=== PATIENT | female | born 1965 | race Caucasian/White ===

== ENCOUNTER 2017-05-27 16:39 | Emergency (ER) | payer BC ==
--- NOTE | 2017-05-27 16:59 | EDM.PDOC ---
ED HPI GENERAL MEDICAL PROBLEM - General Chief Complaint: Gastrointestinal Problem Stated Complaint: DIAHREA,VOMITING, WEAK Time Seen by Provider: 05/27/17 16:59 Source of Information: Reports: Patient History Limitations: Reports: No Limitations - History of Present Illness INITIAL COMMENTS - FREE TEXT/NARRATIVE: HISTORY AND PHYSICAL: []52-year-old female is any with nausea and vomiting last night History of Present Illness: []Patient has been sick for 2 days with nausea vomiting coughing since Tuesday 5 days ago Review of Systems: As per history of present illness and below otherwise all systems reviewed and negative. Past medical history: As per history of present illness and as reviewed below otherwise noncontributory. Surgical history: As per history of present illness and as reviewed below otherwise noncontributory. Social history: No reported history of drug or alcohol abuse. Family history: As per history of present illness and as reviewed below otherwise noncontributory. Physical exam: Alert and oriented female who feels miserable skin is hot and dry HEENT: Atraumatic, normocehpalic, pupils reactive, negative for conjunctival pallor or scleral icterus, mucous membranes dry, throat clear, neck supple, nontender, trachea midline. Lungs: Clear to auscultation, breath sounds equal bilaterally, chest non tender. Heart: S1S2, regular, negative for clicks, rubs, or JVD. Abdomen: Soft, nondistended, nontender. Negative for masses or hepatossplenmegaly. Negative for costovertebral tenderness. Pelvis: Stable nontender. Genitourinary: Deferred. Rectal: Deferred Extremities: Atraumatic, negative for cords or calf pain. Neurovascular unremarkable. Neuro: Awake, alert, oriented. Cranial nerves II through XII unremarkable. Cerebellum unremarkable. Motor and sensory unremarkable throughout. Exam nonfocal. Diagnostics: [CBC CMP influenza] Therapeutics: []IV fluids Zofran Impression: [Positive influenza B] Plan: []Discharged to home Small sip or 2 fluid every 20 minutes to keep hydrated Ibuprofen every 6 hours for discomfort for fever Tamiflu 75 mg twice daily 5 days Definitive disposition and diagnosis as appropriate pending reevaluation and review of above. Onset: Gradual Duration: Day(s): (2-5), Getting Worse Location: Reports: Abdomen Generalized Pain Score (Numeric/FACES): 7 - Related Data Allergies Allergy/AdvReac Type Severity Reaction Status Date / Time acetaminophen [From Percocet] Allergy Hallucinati Verified 05/27/17 16:52 ons oxycodone [From Percocet] Allergy Hallucinati Verified 05/27/17 16:52 ons tramadol Allergy Hallucinati Verified 07/12/13 15:43 ons Home Meds: Home Meds Aspirin [Pj Chewable] 81 mg PO DAILY 07/12/13 [History] Gluc Eubanks/Msm/Magnesium/Vit C [Glucosamine Complex-MSM] 1 each PO DAILY 07/12/13 [ History] Ibuprofen [Advil] 200 mg PO Q4HR PRN 07/12/13 [History] Lisinopril [Zestril] 10 mg PO DAILY 07/12/13 [History] Multivitamin [Multivitamins] 1 cap PO DAILY 07/12/13 [History] Omeprazole 40 mg PO BID 07/12/13 [History] Ubidecarenone [Co Q-10] 10 mg PO DAILY 07/12/13 [History] Vit B6/Me-Thfolate/Me-B12/Ala [Podiapn Capsule] 1 each PO BID 07/12/13 [History] Vit D3 & K/Berberine HCl/Hops [Ostera] 1 each PO DAILY 07/12/13 [History] Vitamin B Complex & Vit C No.4 [Super B Complex] 150 mg PO DAILY 07/12/13 [ History] amLODIPine Besylate [Amlodipine Besylate] 10 mg PO DAILY 07/12/13 [History] atorvaSTATin Calcium [Atorvastatin Calcium] 10 mg PO DAILY 07/12/13 [History] Oseltamivir [Tamiflu] 75 mg PO BID #10 cap 05/27/17 [Rx] Past Medical History - Past Health History Medical/Surgical History: Denies Medical/Surgical History Musculoskeletal History: Reports: Arthritis Hematologic History: Reports: Other (See Below) Other Hematologic History: easy bruising/bleeding - Infectious Disease History Infectious Disease History: Reports: Chicken Pox, MRSA - Past Surgical History HEENT Surgical History: Reports: Oral Surgery, Tonsillectomy GI Surgical History: Reports: Appendectomy, Cholecystectomy, Colonoscopy, EGD Female Surgical History: Reports: Hysterectomy, Tubal Ligation Social & Family History - Family History Family Medical History: Noncontributory - Tobacco Use Smoking Status *Q: Never Smoker Years of Tobacco use: 0 Second Hand Smoke Exposure: No - Alcohol Use Days Per Week of Alcohol Use: 4 Number of Drinks Per Day: 2 Total Drinks Per Week: 8 - Recreational Drug Use Recreational Drug Use: No Drug Use in Last 12 Months: No ED ROS GENERAL - Review of Systems Review Of Systems: ROS reveals no pertinent complaints other than HPI. ED EXAM, GI/ABD - Physical Exam Exam: See Below (See dictation) Course - Vital Signs Last Recorded V/S: Last Vital Signs Temp 38.0 C 05/27/17 17:37 Pulse 103 H 05/27/17 16:49 Resp 20 05/27/17 16:49 BP 138/83 05/27/17 16:49 Pulse Ox 98 05/27/17 16:49 - Orders/Labs/Meds Orders: Active Orders 24 hr Category Date Time Status CBC WITH AUTO DIFF [HEME] Stat Lab 05/27/17 17:06 Ordered COMPREHENSIVE METABOLIC PN,CMP [CHEM] Stat Lab 05/27/17 17:06 Ordered CULTURE STREP A CONFIRMATION [RM] Stat Lab 05/27/17 17:11 Results CULTURE URINE [RM] Stat Lab 05/27/17 17:06 Ordered STREP SCRN A RAPID W CULT CONF [RM] Stat Lab 05/27/17 17:11 Results UA W/MICROSCOPIC [URIN] Stat Lab 05/27/17 17:06 Ordered Sodium Chloride 0.9% [Normal Saline] 500 ml Med 05/27/17 17:15 Active IV STAT Sodium Chloride 0.9% [Saline Flush] Med 05/27/17 17:06 Active 10 ml FLUSH ASDIRECTED PRN Sodium Chloride 0.9% [Saline Flush] Med 05/27/17 17:06 Active 2.5 ml FLUSH ASDIRECTED PRN Saline Lock Insert [OM.PC] Stat Oth 05/27/17 17:06 Ordered Medication Orders Sodium Chloride (Normal Saline) 500 mls @ 999 mls/hr IV STAT NITHIN Last Admin: 05/27/17 17:34 Dose: 999 mls/hr Sodium Chloride (Saline Flush) 10 ml FLUSH ASDIRECTED PRN PRN Reason: Keep Vein Open Last Admin: 05/27/17 17:37 Dose: 10 ml Sodium Chloride (Saline Flush) 2.5 ml FLUSH ASDIRECTED PRN PRN Reason: Keep Vein Open Last Admin: 05/27/17 17:37 Dose: 2.5 ml Meds: Medications Generic Name Dose Route Start Last Admin Trade Name Frealmita PRN Reason Stop Dose Admin Sodium Chloride 500 mls @ 999 mls/hr 05/27/17 17:15 05/27/17 17:34 Normal Saline IV 999 mls/hr STAT NITHIN Administration Sodium Chloride 10 ml 05/27/17 17:06 05/27/17 17:37 Saline Flush FLUSH 10 ml ASDIRECTED PRN Administration Keep Vein Open Sodium Chloride 2.5 ml 05/27/17 17:06 05/27/17 17:37 Saline Flush FLUSH 2.5 ml ASDIRECTED PRN Administration Keep Vein Open Discontinued Medications Generic Name Dose Route Start Last Admin Trade Name Leanna PRN Reason Stop Dose Admin Ibuprofen 400 mg 05/27/17 17:09 05/27/17 17:37 Motrin PO 05/27/17 17:10 400 mg ONETIME ONE Administration Ondansetron HCl 4 mg 05/27/17 17:08 05/27/17 17:35 Zofran IVPUSH 05/27/17 17:09 4 mg ONETIME ONE Administration Departure - Departure Time of Disposition: 17:44 Disposition: Home, Self-Care 01 Condition: Good Clinical Impression: Influenza B - Discharge Information Prescriptions: Oseltamivir [Tamiflu] 75 mg PO BID #10 cap Instructions: Influenza, Adult, [id number] Referrals: Surendra Long MD [Primary Care Provider] - Forms: ED Department Discharge - My Orders Last 24 Hours: My Active Orders 05/27/17 17:06 CBC WITH AUTO DIFF [HEME] Stat COMPREHENSIVE METABOLIC PN,CMP [CHEM] Stat CULTURE URINE [RM] Stat UA W/MICROSCOPIC [URIN] Stat Sodium Chloride 0.9% [Saline Flush] 10 ml FLUSH ASDIRECTED PRN Sodium Chloride 0.9% [Saline Flush] 2.5 ml FLUSH ASDIRECTED PRN Saline Lock Insert [OM.PC] Stat 05/27/17 17:11 CULTURE STREP A CONFIRMATION [RM] Stat STREP SCRN A RAPID W CULT CONF [RM] Stat 05/27/17 17:15 Sodium Chloride 0.9% [Normal Saline] 500 ml IV STAT - Assessment/Plan Last 24 Hours: My Active Orders 05/27/17 17:06 CBC WITH AUTO DIFF [HEME] Stat COMPREHENSIVE METABOLIC PN,CMP [CHEM] Stat CULTURE URINE [RM] Stat UA W/MICROSCOPIC [URIN] Stat Sodium Chloride 0.9% [Saline Flush] 10 ml FLUSH ASDIRECTED PRN Sodium Chloride 0.9% [Saline Flush] 2.5 ml FLUSH ASDIRECTED PRN Saline Lock Insert [OM.PC] Stat 05/27/17 17:11 CULTURE STREP A CONFIRMATION [RM] Stat STREP SCRN A RAPID W CULT CONF [RM] Stat 05/27/17 17:15 Sodium Chloride 0.9% [Normal Saline] 500 ml IV STAT
[2017-05-27] MEDS ORDERED: Sodium Chloride 0.9% 2.5 ML Syringe FLUSH PRN (17:06)
[2017-05-27] MEDS ORDERED: Sodium Chloride 0.9% 10 ML Syringe FLUSH PRN (17:06)
[2017-05-27] MEDS ORDERED: Ondansetron 4 MG/2 ML SDV IVPUSH ONE (17:08)
[2017-05-27] MEDS ORDERED: Ibuprofen 400 MG Tab PO ONE (17:09)
[2017-05-27] MEDS ORDERED: Sodium Chloride 0.9% 500 ML IV SCH (17:15)
== END 2017-05-27 18:19 | disposition home or self-care (01) ==
LOC: MW.ED 16:39
DX: J10.1 Influenza due to other identified influenza virus with other respiratory manifestations (principal); Z79.82 Long term (current) use of aspirin; Z79.899 Other long term (current) drug therapy; Z88.5 Allergy status to narcotic agent; Z88.6 Allergy status to analgesic agent
CPT/HCPCS: 87081; 87804; 87880; 96361; 96374; 99283; A9270; J2405; J7040

== ENCOUNTER 2019-05-29 10:41 | Emergency (ER) | payer BC ==
--- NOTE | 2019-05-29 12:15 | EDM.PDOC ---
ED HPI GENERAL MEDICAL PROBLEM - General Chief Complaint: General Stated Complaint: FLU Time Seen by Provider: 05/29/19 12:14 Source of Information: Reports: Patient History Limitations: Reports: No Limitations - History of Present Illness INITIAL COMMENTS - FREE TEXT/NARRATIVE: HISTORY AND PHYSICAL: History of present illness: Patient is a 54-year-old female presents to the ED with complaint of sore throat and body aches. She states she has had chills and not feeling well for the past 2 days. She denies nausea, vomiting, abdominal pain, cough, chest pain , shortness of breath, trismus, difficulty swallowing or breathing. Review of systems: As per history of present illness and below otherwise all systems reviewed and negative. Past medical history: As per history of present illness and as reviewed below otherwise noncontributory. Surgical history: As per history of present illness and as reviewed below otherwise noncontributory. Social history: No reported history of drug or alcohol abuse. Family history: As per history of present illness and as reviewed below otherwise noncontributory. Physical exam: General: Patient sitting comfortably in no acute distress and nontoxic appearing HEENT: OP is erythematous without exudate. Tonsils absent. Atraumatic, normocephalic, pupils reactive, negative for conjunctival pallor or scleral icterus, mucous membranes moist, throat clear, neck supple, nontender, trachea midline. No meningeal signs. Lungs: Clear to auscultation, breath sounds equal bilaterally, chest nontender. Heart: S1S2, regular, negative for clicks, rubs, or overt murmur. Abdomen: Soft, nondistended, nontender. Negative for masses or hepatosplenomegaly. Negative for costovertebral tenderness. No rigidity, rebound , guarding. Pelvis: Stable nontender. Genitourinary: Deferred. Rectal: Deferred. Extremities: Atraumatic, negative for cords or calf pain. Neurovascular unremarkable. Neuro: Awake, alert, oriented. Cranial nerves II through XII unremarkable. Cerebellum unremarkable. Motor and sensory unremarkable throughout. Exam nonfocal. Notes: Diagnostics: Rapid strep, influenza Therapeutics: none Prescriptions: Penicillin Impression: Acute pharyngitis Plan: Take antibiotic as instructed Tylenol and ibuprofen as needed Follow up with primary care provider Return to ED as needed as discussed Definitive disposition and diagnosis as appropriate pending reevaluation and review of above. Generalized Pain Score (Numeric/FACES): 5 - Related Data Allergies Allergy/AdvReac Type Severity Reaction Status Date / Time oxycodone [From Percocet] Allergy Other Verified 05/29/19 11:36 tramadol Allergy Other Verified 05/29/19 11:36 Home Meds: Home Meds Aspirin [Pj Chewable] 81 mg PO DAILY 07/12/13 [History] Gluc Eubanks/Msm/Magnesium/Vit C [Glucosamine Complex-MSM] 1 each PO DAILY 07/12/13 [ History] Lisinopril [Zestril] 10 mg PO DAILY 07/12/13 [History] Multivitamin [Multivitamins] 1 cap PO DAILY 07/12/13 [History] Omeprazole 40 mg PO BID 07/12/13 [History] Ubidecarenone [Co Q-10] 10 mg PO DAILY 07/12/13 [History] Vit B6/Me-Thfolate/Me-B12/Ala [Podiapn Capsule] 1 each PO BID 07/12/13 [History] Vit D3 & K/Berberine HCl/Hops [Ostera] 1 each PO DAILY 07/12/13 [History] Vitamin B Complex Vit C No.4 [Super B Complex] 150 mg PO DAILY 07/12/13 [History ] amLODIPine Besylate [Amlodipine Besylate] 20 mg PO DAILY 07/12/13 [History] atorvaSTATin Calcium [Atorvastatin Calcium] 20 mg PO DAILY 07/12/13 [History] Penicillin V Potassium [Veetids] 500 mg PO BID 10 Days #20 tab 05/29/19 [Rx] Past Medical History - Past Health History Medical/Surgical History: Denies Medical/Surgical History Cardiovascular History: Reports: None Respiratory History: Reports: None Gastrointestinal History: Reports: G[employer] History: Reports: Musculoskeletal History: Reports: Arthritis Neurological History: Reports: None Psychiatric History: Reports: None Endocrine/Metabolic History: Reports: None Hematologic History: Reports: Other (See Below) Other Hematologic History: easy bruising/bleeding Immunologic History: Reports: None Oncologic (Cancer) History: Reports: None Dermatologic History: Reports: None - Infectious Disease History Infectious Disease History: Reports: Chicken Pox - Past Surgical History Head Surgeries/Procedures: Reports: None HEENT Surgical History: Reports: Adenoidectomy, Oral Surgery, Tonsillectomy GI Surgical History: Reports: Appendectomy, Cholecystectomy, Colonoscopy, EGD Female Surgical History: Reports: Hysterectomy, Tubal Ligation Social & Family History - Family History Family Medical History: Noncontributory - Tobacco Use Smoking Status *Q: Never Smoker - Recreational Drug Use Recreational Drug Use: No ED ROS GENERAL - Review of Systems Review Of Systems: Comprehensive ROS is negative, except as noted in HPI. ED EXAM, GENERAL - Physical Exam Exam: See Below (see dictation) Course - Vital Signs Last Recorded V/S: Last Vital Signs Temp 99.2 F 05/29/19 11:31 Pulse 76 05/29/19 11:31 Resp 18 05/29/19 11:31 BP 123/58 L 05/29/19 11:31 Pulse Ox 97 05/29/19 11:31 Departure - Departure Time of Disposition: 12:18 Disposition: Home, Self-Care 01 Condition: Good Clinical Impression: Strep pharyngitis Clinical Impression: (Ruled Out): Strep tonsillitis - Discharge Information Prescriptions: Penicillin V Potassium [Veetids] 500 mg PO BID 10 Days #20 tab Referrals: Surendra Long MD [Primary Care Provider] - Forms: ED Department Discharge Additional Instructions: The following information is given to patients seen in the emergency department who are being discharged to home. This information is to outline your options for follow-up care. We provide all patients seen in our emergency department with a follow-up referral. The need for follow-up, as well as the timing and circumstances, are variable depending upon the specifics of your emergency department visit. If you don't have a primary care physician on staff, we will provide you with a referral. We always advise you to contact your personal physician following an emergency department visit to inform them of the circumstance of the visit and for follow-up with them and/or the need for any referrals to a consulting specialist. The emergency department will also refer you to a specialist when appropriate. This referral assures that you have the opportunity for follow-up care with a specialist. All of these measure are taken in an effort to provide you with optimal care, which includes your follow-up. Under all circumstances we always encourage you to contact your private physician who remains a resource for coordinating your care. When calling for follow-up care, please make the office aware that this follow-up is from your recent emergency room visit. If for any reason you are refused follow-up, please contact the [facility] Emergency Department at and asked to speak to the emergency department charge nurse. [facility] Primary Care [address] [place] [address] [id number] Take antibiotic as instructed Tylenol and ibuprofen as needed Follow up with primary care provider Return to ED as needed as discussed Sepsis Event Note - Evaluation Sepsis Screening Result: No Definite Risk - Focused Exam Vital Signs: Vital Signs Temp Pulse Resp BP Pulse Ox 05/29/19 11:31 99.2 F 76 18 123/58 L 97 Date Exam was Performed: 05/29/19 Time Exam was Performed: 12:40
== END 2019-05-29 13:01 | disposition home or self-care (01) ==
LOC: MW.ED 10:41
DX: J02.0 Streptococcal pharyngitis (principal); K21.9 Gastro-esophageal reflux disease without esophagitis; Z79.82 Long term (current) use of aspirin; Z79.899 Other long term (current) drug therapy; Z88.6 Allergy status to analgesic agent
CPT/HCPCS: 87804; 87880-QW; 99283

== ENCOUNTER 2022-08-06 09:01 | Day surgery (SDC) | payer BC, OTHER ==
[~2022-08-06 09:01] MED LIST: Lactated Ringers 1,000 ML IV SCH; Lidocaine 1% 5 ML VIAL ONE; Midazolam 1 MG/ML 2 ML SDV ONE; fentaNYL 100 MCG/2 ML SDV ONE; propofoL 50 ML ONE
[2022-08-06] MEDS ORDERED: Propofol 200 MG/20 ML SDV ONE (11:11)
[2022-08-06] MEDS ORDERED: Glycopyrrolate 0.2 MG/ML SDV ONE (11:24)
== END 2022-08-06 12:25 | disposition home or self-care (01) ==
LOC: MW.SDS 09:01
PROVIDERS: ATTEND Surgery
DX: Z12.11 Encounter for screening for malignant neoplasm of colon (principal); K21.00 Gastro-esophageal reflux disease with esophagitis, without bleeding; K22.70 Barrett's esophagus without dysplasia; K44.9 Diaphragmatic hernia without obstruction or gangrene; K31.7 Polyp of stomach and duodenum; K29.50 Unspecified chronic gastritis without bleeding; E78.00 Pure hypercholesterolemia, unspecified; I10 Essential (primary) hypertension; R13.10 Dysphagia, unspecified; M19.90 Unspecified osteoarthritis, unspecified site; E66.9 Obesity, unspecified; Z68.30 Body mass index [BMI] 30.0-30.9, adult; Z88.6 Allergy status to analgesic agent; Z79.899 Other long term (current) drug therapy; Z90.49 Acquired absence of other specified parts of digestive tract; Z90.710 Acquired absence of both cervix and uterus; Z87.891 Personal history of nicotine dependence; Z90.09 Acquired absence of other part of head and neck; Z79.82 Long term (current) use of aspirin
CPT/HCPCS: 43239; 45378; J2250; J2704; J3010; J3490; J7120; 00813